=== PATIENT | female | born 1975 | race Caucasian/White ===

== ENCOUNTER 2018-03-13 18:41 | Emergency (ER) | payer OTHER ==
[2018-03-13 18:50] VITALS: BP 139/78; PULSE 78; TEMP 99.1; BMI 26.0
--- NOTE | 2018-03-13 19:46 | PDOC ---
History of Present Illness - General History Source: Patient Exam Limitations: No Limitations - History of Present Illness Initial Comments: 03/13/18 20:43 Patient is a 43 year old female with a significant past medical history of recurrent URIs, GERD, who presents to the ED with complaints of left balta- scapular pain that began x3 days ago. Patient reports experiencing left balta- scapular pain that she states is an intermittent stabbing pain that does not change with movement or deep breathing. She reports initially thinking the pain to be due to gas, and so thought nothing of it at first. Patient reports the pain has been gradually increased in intensity over time, prompting her to come into the ED for further evaluation. She reports experiencing associated symptoms of chest heaviness and shortness of breath. Patient reports experiencing a slight cold x3 weeks ago but states it has since subsided. She reports having slight episodes of epigastric pain. Denies chest pain, nausea, vomiting. Denies contact with sick individuals, out of state travelling. Denies dysuria, hematuria. Denies constipation, diarrhea. Denies any other symptoms. Allergies: amoxicillin, azithromycin, cipro, augmentin, Tequin Social history: Lives with and 2 daughters. No smoking. No alcohol. No illicit drugs. Surgical history: None PMD: None <Jaxon Vital - Last Filed: 03/13/18 21:54> <Randa Ridley - Last Filed: 03/14/18 05:57> - General Chief Complaint: Cold Symptoms Stated Complaint: COUGH,UPPER BACK CHEST PAIN Time Seen by Provider: 03/13/18 19:13 Past History <Jaxon Vital - Last Filed: 03/13/18 21:54> - Past Medical History COPD: No GI Disorders: Yes Seizures: Yes - Suicide/Smoking/Psychosocial Hx Smoking History: Current every day smoker Have you smoked in the past 12 months: Yes Number of Cigarettes Smoked Daily: 20 Information on smoking cessation initiated: Yes Hx Alcohol Use: No Drug/Substance Use Hx: No <Randa Ridley - Last Filed: 03/14/18 05:57> - Past Medical History Allergies/Adverse Reactions: Allergies Allergy/AdvReac Type Severity Reaction Status Date / Time amoxicillin Allergy Mild Rash Verified 03/13/18 18:43 azithromycin Allergy Mild Rash Verified 03/13/18 18:43 ciprofloxacin [From Cipro] Allergy Mild Rash Verified 03/13/18 18:43 clavulanic acid Allergy Mild Rash Verified 03/13/18 18:43 [From Augmentin] gatifloxacin [From Tequin] Allergy Mild Rash Verified 03/13/18 18:43 Home Medications: Ambulatory Orders Ascorbic Acid [Vitamin C] 1,000 mg PO DAILY 03/13/18 Levothyroxine [Synthroid -] 125 mcg PO DAILY 03/13/18 Pantoprazole Sodium [Protonix -] 20 mg PO DAILY 03/13/18 Review of Systems - Review of Systems Able to Perform ROS?: Yes Comments:: 03/13/18 20:43 GENERAL/CONSTITUTIONAL: No fever or chills. No weakness. HEAD, EYES, EARS, NOSE AND THROAT: No change in vision. No ear pain or discharge. No sore throat. CARDIOVASCULAR: No chest pain or shortness of breath. RESPIRATORY: No cough, wheezing, or hemoptysis. GASTROINTESTINAL: No nausea, vomiting, diarrhea or constipation. GENITOURINARY: No dysuria, frequency, or change in urination. MUSCULOSKELETAL: No joint or muscle swelling or pain. No neck or back pain. SKIN: No rash NEUROLOGIC: No headache, vertigo, loss of consciousness, or change in strength/ sensation. ENDOCRINE: No increased thirst. No abnormal weight change. HEMATOLOGIC/LYMPHATIC: No anemia, easy bleeding, or history of blood clots. ALLERGIC/IMMUNOLOGIC: No hives or skin allergy. <Jaxon Vital - Last Filed: 03/13/18 21:54> *Physical Exam - Vital Signs Last Vital Signs Temp Pulse Resp BP Pulse Ox 99.1 F 78 20 139/78 100 03/13/18 18:41 03/13/18 18:41 03/13/18 18:41 03/13/18 18:41 03/13/18 18:41 - Physical Exam Comments: 03/13/18 20:43 GENERAL: Awake, alert, and fully oriented, in no acute distress HEAD: No signs of trauma EYES: PERRLA, EOMI, sclera anicteric, conjunctiva clear ENT: Auricles normal inspection, hearing grossly normal, nares patent, oropharynx clear without exudates. Moist mucosa NECK: Normal ROM, supple, no lymphadenopathy, JVD, or masses CHEST WALL: No tenderness. No reproduction of pain with inspiration. No crepitus. No step off. LUNGS: Breath sounds equal, clear to auscultation bilaterally. No wheezes, and no crackles HEART: Regular rate and rhythm, normal S1 and S2, no murmurs, rubs or gallops ABDOMEN: +Mild epigastric tenderness. Soft, nontender, normoactive bowel sounds. No guarding, no rebound. No masses EXTREMITIES: Normal range of motion, no edema. No clubbing or cyanosis. No cords, erythema, or tenderness NEUROLOGICAL: Cranial nerves II through XII grossly intact. Normal speech, normal gait SKIN: Warm, Dry, normal turgor, no rashes or lesions noted. <Jaxon Vital - Last Filed: 03/13/18 21:54> - Vital Signs Last Vital Signs Temp Pulse Resp BP Pulse Ox 99.1 F 78 20 139/78 100 03/13/18 18:41 03/13/18 18:41 03/13/18 18:41 03/13/18 18:41 03/13/18 18:41 <Randa Ridley - Last Filed: 03/14/18 05:57> Moderate Sedation - Procedure Monitoring Vital Signs: Procedure Monitoring Vital Signs Temperature 99.1 F 03/13/18 18:41 Pulse Rate 78 03/13/18 18:41 Respiratory Rate 20 03/13/18 18:41 Blood Pressure 139/78 03/13/18 18:41 O2 Sat by Pulse Oximetry (%) 100 03/13/18 18:41 <Jaxon Vital - Last Filed: 03/13/18 21:54> - Procedure Monitoring Vital Signs: Procedure Monitoring Vital Signs Temperature 99.1 F 03/13/18 18:41 Pulse Rate 78 03/13/18 18:41 Respiratory Rate 20 03/13/18 18:41 Blood Pressure 139/78 18 18:41 O2 Sat by Pulse Oximetry (%) 100 03/13/18 18:41 <Randa Ridley - Last Filed: 03/14/18 05:57> ED Treatment Course - ADDITIONAL ORDERS Additional order review: Laboratory Results 03/13/18 19:54 Urine Color Yellow Urine Appearance Clear Urine pH 6.5 Ur Specific [place] <= 1.005 L Urine Protein Negative Urine Glucose (UA) Negative Urine Ketones Negative Urine Blood Negative Urine Nitrite Negative Urine Bilirubin Negative Urine Urobilinogen 0.2 Ur Leukocyte Esterase Trace H Urine RBC 0-2 Urine WBC 5-10 Ur Epithelial Cells Few Amorphous Urates None seen Urine Bacteria None seen Urine HCG, Qual Negative <Jaxon Vital - Last Filed: 03/13/18 21:54> Progress Note - Progress Note Progress Note: Documentation has been prepared under my direction and personally reviewed by me in its entirety. I attest that this documented accurately reflects all work, treatment, procedures and medical decision making performed by me. <Randa Ridley - Last Filed: 03/14/18 05:57> Medical Decision Making - Medical Decision Making As noted above, this 43-year-old woman, current smoker presents with intermittent left periscapular pain. Pain is not related to deep breathing or movement. She has no history of trauma although she recently had bronchitis with frequent coughing. These symptoms have largely resolved. Patient is also complaining of mild epigastric pain; she has a history of GERD and has been prescribed Protonix to be used on an as needed basis. She has been taking the Protonix daily for the last 3 days. She admits to dietary indiscretion. Exam as noted Because of the patient's history of productive cough a few weeks ago and history of smoking, chest x-ray was performed: No evidence of active pulmonary disease. Patient's epigastric discomfort and intermittent left periscapular pain likely related to her GERD. Dosage of Protonix will be doubled (40 mg prior to that wrist and 40 mg prior to dinner) she should follow-up with her general doctor. She also states that she will follow-up with her mother's instructional material director since she has never been evaluated by instructional material director. She should return to the emergency room if she has worsening symptoms. <Randa Ridley - Last Filed: 03/14/18 05:57> *DC/Admit/Observation/Transfer - Attestations Scribe Attestion: 03/13/18 20:44 Documentation prepared by Jaxon Vital, acting as medical supply technician for Randa Ridley MD. <Jaxon Vital - Last Filed: 03/13/18 21:54> <Randa Ridley - Last Filed: 03/14/18 05:57> Diagnosis at time of Disposition: GERD (gastroesophageal reflux disease) Qualifiers: Esophagitis presence: with esophagitis Qualified Code(s): K21.0 - Gastro- esophageal reflux disease with esophagitis - Discharge Dispostion Disposition: HOME Condition at time of disposition: Stable - Patient Instructions Printed Discharge Instructions: DI for Gastroesophageal Reflux Disease (GERD), GERD Diet Additional Instructions: Increase Protonix to 40mg twice a day Be careful with foods that trigger GERD symptoms avoid smoking followup with instructional material director within next 2 weeks return to ER if pain worsens or you develop vomiting
[2018-03-13 20:13] LABS: PH,URINE 6.5 (4.5-8); URINE APPEARANCE Clear; URINE BILIRUBIN Negative (NEGATIVE); URINE COLOR Yellow; URINE GLUCOSE (UA) Negative (NEGATIVE); URINE KETONE Negative (NEGATIVE); URINE LEUK ESTERASE TRACE (NEGATIVE); URINE NITRITE Negative (NEGATIVE); URINE PROTEIN Negative (NEGATIVE); URINE UROBILINOGEN 0.2 (0.2-1.0)
[2018-03-13 20:20] LABS: HCG,QUALITATIVE URINE Negative
[2018-03-13 20:39] LABS: URINE RBC 0-2 /hpf (0-3)
[2018-03-13 20:40] LABS: AMORP URATES NONE SEEN /hpf (NONE SEEN); EPI CELLS FEW /HPF; URINE BACTERIA NONE SEEN /hpf (NEGATIVE)
== END 2018-03-13 21:49 | disposition home or self-care (01) ==
LOC: FER 18:41
DX: K21.0 Gastro-esophageal reflux disease with esophagitis (principal)
CPT/HCPCS: 71046-TC-FY; 81003; 81015; 84703; 99282-25

== ENCOUNTER 2021-11-05 19:27 | Emergency (ER) | payer OTHER ==
[2021-11-05 19:36] VITALS: BP 169/98; PULSE 60; RESP 16; TEMP 99.5; BMI 26.2
[2021-11-05] MEDS ORDERED: DEXAMETHASONE LIQUID 0.5 MG/5 ML PO ONE (19:46)
[2021-11-05] MEDS ORDERED: DEXAMETHASONE SOD PHOSPHATE 10 MG/1 ML VIAL ONE (19:49)
== END 2021-11-05 20:19 | disposition home or self-care (01) ==
LOC: FER 19:27
DX: U07.1 COVID-19 (principal)
CPT/HCPCS: 71046-TC-FY; 99284-25; C9803-CS; U0003; U0005

== ENCOUNTER 2023-09-11 09:40 | Emergency (ER) | payer OTHER ==
[2023-09-11 09:51] VITALS: RESP 18; TEMP 99.1; BMI 25.9
[2023-09-11] MEDS ORDERED: IBUPROFEN 400 MG TABLET (FP) PO ONE (10:17)
[2023-09-11] MEDS: IBUPROFEN 400 MG TABLET (FP) PO ONE (10:20)
[2023-09-11 11:03] LABS: HEMOGLOBIN 13.9 G/dL (10.7-15.3); MCH 30.6 pg (25.7-33.7); MCHC 32.2 g/dl (32.0-36.0); MEAN CELL VOLUME 95.1 fl (80-96); MEAN PLT VOLUME 7.3 fl (7.5-11.1); PLATELET COUNT 490.6 10^3/uL (134-434); RBC 4.52 10^6/uL (3.60-5.2); RDW 14.2 % (11.6-15.6); WHITE BLOOD COUNT 11.7 10^3/uL (4.0-10.8)
[2023-09-11 11:06] LABS: ALBUMIN 4.3 g/dl (3.4-5.0); BILIRUBIN,TOTAL 0.5 mg/dl (0.2-1); CALCIUM 9.8 mg/dl (8.5-10.1); CREATININE 0.6 mg/dl (0.6-1.3); TOT PROT 7.2 g/dl (6.4-8.2)
[2023-09-11 12:25] LABS: PLATELET ESTIMATE INCREASED
[2023-09-11 12:26] LABS: ANISOCYTOSIS 1+
[2023-09-11 12:51] VITALS: BP 142/86; PULSE 76
== END 2023-09-11 12:50 | disposition home or self-care (01) ==
LOC: FER 09:40
DX: R07.81 Pleurodynia (principal); R05.2 Subacute cough; R09.81 Nasal congestion
CPT/HCPCS: 36415; 71046-TC-FY; 80053; 84484; 85027; 93005; 99285-25